=== PATIENT | male | born 1950 | race Caucasian/White ===

== ENCOUNTER → 2018-01-14 | Outpatient (CLI) | payer MEDICARE | END | disposition home or self-care (01) | LOC: PCVCCLINIC 11:10 | PROVIDERS: ATTEND Internal Medicine Cardiovascular Disease | DX: E78.00 Pure hypercholesterolemia, unspecified (principal); I35.1 Nonrheumatic aortic (valve) insufficiency; N18.3 Chronic kidney disease, stage 3 (moderate) | CPT/HCPCS: 80061; 93005; G0463 ==

== ENCOUNTER → 2019-01-11 | Outpatient (CLI) | payer MEDICARE ==
--- NOTE | 2019-01-11 14:43 | PCVCIMAG ---
APPROVED REPORT Study performed: 01/11/2019 10:41:24 Exam: Stress Echocardiogram Indication: Hypertension, Bicuspid aortic valve,cad Patient Location: Echo lab Stress Nurse: Maria Guadalupe Coreas RN Room #: 2 Status: routine Ht: 6 ft 0 in HR: 79 bpm BP: 112/76 mmHg Rhythm: NSR with occasional PVCs Medical History Medical History: HTN, Bicuspid aortic valve Cardiac Risk Factors: HTN,mildly elevated coronary calcium score Pretest Chest Pain Characteristics: No chest pain Exercise History: Physically active Procedure The patient underwent an Exercise Stress Test using the Trudy Protocol. Blood pressure, heart rate, and EKG were monitored. An Echocardiogram was performed by technician automatic in four stages in quad fashion. At peak stress, four selected images were obtained and placed side by side with resting images for comparison. Stress Test Details Stress Test: Exercise stress testing was performed using a Trudy protocol. HR Resting HR: 73 bpmMax Heart Rate (APMHR): 153 bpm Max HR Achieved: 169 bpmTarget HR (85% APMHR): 130 bpm % of APMHR: 110 Recovery HR: 110 bpm HR response to stress: Normal HR response to stress BP Resting BP: 112/76 mmHg Max BP: 148/70 mmHg Recovery BP: 112/62 mmHg BP response to stress: Normal blood pressure response to stress. ECG Resting ECG: SR,1st degree AV block Stress ECG: SR,1st degree AV block ST Change: Non-ischemic Maximum ST Deviation: -1.8 mm Arrhythmia: occ PVCs, PACs Recovery ECG: Sinus Rhythm Recovery ST Change: Non-ischemic Recovery ST Deviation: -1.9 mm Recovery Arrhythmia: occ PVCs Clinical Reason for Termination: Maximal effort Stress Symptoms: none Exercise duration: 12 min 00 sec Highest Stage Achieved: Stage 4: 4.2 mph at 16% grade. Exercise capacity: 13.7 METs Overall Exercise Capacity for Age: Good Scale: Active Angina Score: None No complications. Stress ECG Conclusion The patient exercised according to the TRUDY protocol for 12:00 mins; achieving a work level of 13.7 METS. The resting heart rate of 73 bpm letty to a maximum heart rate of 169 bpm. This value represent 110% of the maximal, age-predicted heart rate. The resting blood pressure of 112/76 mmHg, letty to a maximum blood pressure of 148/70 mmHg. The exercise test was stopped due to fatigue . Sunshine Treadmill Score is 21.0 which is Low risk. Pre-Stress Echo The resting Echocardiogram showed normal left ventricular contractility with an estimated Ejection Fraction of about 55-60%. Normal wall motion in all segments on baseline images. Post-Stress Echo The stress Echocardiogram showed normal left ventricular contractility with an estimated Ejection Fraction of about 65-70%. Normal augmentation of wall motion in all segments on post stress images. Clinical No clinical or ECG evidence for ischemia. Conclusion Clinical Response: Non-ischemic Exercise Capacity: Superior Stress ECG Response: Non-ischemic Stress Echo Images: Non-ischemic No clinical, EKG or echocardiographic evidence for ischemia. No echocardiographic evidence for exercise induced ischemia. Normal stress echocardiogram with maximal exercise stress. Normal velocity is seen across the bicuspid aortic valve.Normal color doppler. No regurgitation or stenosis present on pulmonic, mitral, tricuspid or aortic valves. <Conclusion> No clinical, EKG or echocardiographic evidence for ischemia. No echocardiographic evidence for exercise induced ischemia. Normal stress echocardiogram with maximal exercise stress. Normal velocity is seen across the bicuspid aortic valve.Normal color doppler. No regurgitation or stenosis present on pulmonic, mitral, tricuspid or aortic valves.
== END | disposition home or self-care (01) ==
LOC: PCVCIMAG 10:37
PROVIDERS: ATTEND Internal Medicine Cardiovascular Disease
DX: Q23.1 Congenital insufficiency of aortic valve (principal); I25.10 Atherosclerotic heart disease of native coronary artery without angina pectoris; I10 Essential (primary) hypertension
CPT/HCPCS: 93325; 93351